=== PATIENT | male | born 1970 | race Caucasian/White ===

== ENCOUNTER → 2024-06-23 | Outpatient (CLI) | payer BC, SELFPAY ==
[2024-06-23 10:19] LABS: Absolute Neutrophil Count 4.1 X10^3/uL (2.0-7.7); Basophil# 0.08 X10^3/uL; Basophil% 1.1 % (0-1); Eosinophils% 1.4 % (0-5); Hematocrit 50.6 % (40-54); Hemoglobin 16.6 g/dL (13.0-16.5); Mean Corp Hgb Conc 32.8 g/dL (32-36); Mean Corpuscular Hgb 29.4 pg (27.0-32.0); Mean Corpuscular Volume 89.6 fL (80-94); Monocyte# 0.59 X10^3/uL; Monocyte% 8.3 % (0-10); NRBC Flagged by Analyzer 0 % (0-5); Neutrophil % 57.8 % (47-70); Platelet Count 249 K/mm3 (150-450); RBC Distribution Width CV 13.2 % (11.6-14.6); RBC Distribution Width SD 43.2 fl (35.1-43.9); Red Blood Count 5.65 M/mm3 (4.6-6.2); White Blood Count 7.1 K/mm3 (4.4-11.0)
[2024-06-23 10:41] LABS: Vitamin D,25 Hydroxy 26.4 ng/mL
[2024-06-23 11:10] LABS: ALB/GLOB Ratio 0.8 RATIO (0.9-2.4); AST(SGOT) 28 U/L (15-37); Alanine Aminotransfer ALT/SGPT 66 U/L (16-61); Albumin, Serum 3.6 g/dL (3.2-5.0); Alkaline Phosphatase 101 U/L (45-117); Anion Gap 6 (5-15); BUN 18 mg/dL (7-18); BUN/Creat Ratio 17.1 RATIO (10-20); Calcium,Total 9.4 mg/dL (8.5-10.1); Chloride 106 mmol/L (98-107); Cholesterol 188 mg/dL (200); Creatinine, Serum 1.05 mg/dL (0.70-1.30); EST Glomerular Filtration Rate 79 mL/min (>60); Est Glom Filt Rate - Afr Amer 95 mL/min (>60); Globulin 4.6 g/dL (2.2-4.2); Glucose 93 mg/dL (74-106); High Density Lipoprotein 38 mg/dL; PSA,Total- Diagnostic 1.03 ng/mL (0.0-4.0); Potassium 4.2 mmol/L (3.5-5.1); Protein, Total 8.2 g/dL (6.4-8.2); Sodium Level 136 mmol/L (136-145); Thyroid Stim Hormone (TSH) 1.83 uIU/mL (0.358-3.74); Triglycerides 219 mg/dL; Very Low Density Lipoprotein 44 mg/dL (5-40)
== END | disposition home or self-care (01) ==
PROVIDERS: PCP Family Medicine; Referring Provider Family Medicine; Visit Provider Family Medicine
DX: Z12.5 Encounter for screening for malignant neoplasm of prostate (principal); Z12.11 Encounter for screening for malignant neoplasm of colon; Z00.00 Encounter for general adult medical examination without abnormal findings; I10 Essential (primary) hypertension
CPT/HCPCS: 36415; 80053; 80061; 82306; 84153; 84443; 85025

== ENCOUNTER 2024-07-03 19:28 | Emergency (ER) | payer BC, SELFPAY ==
[2024-07-03] VITALS (10 sets, daily range): BP systolic 128–228; BP diastolic 95–135; PULSE 89–107; RESP 14–22; TEMP 35.6–37.2; O2SAT 96–98; BMI 37.5
[2024-07-03 20:00] LABS: Absolute Lymphocyte Count 4.19 X10^3/uL (0.83-4.51); Basophil# 0.09 X10^3/uL; Basophil% 0.8 % (0-1); Eosinophil# 0.18 X10^3/uL; Eosinophils% 1.7 % (0-5); Hematocrit 44.9 % (40-54); Hemoglobin 15.5 g/dL (13.0-16.5); Lymphocyte # 4.19 X10^3/ul (0.83-4.51); Lymphocyte % 39.2 % (19-41); Mean Corp Hgb Conc 34.5 g/dL (32-36); Mean Corpuscular Hgb 29.8 pg (27.0-32.0); Mean Corpuscular Volume 86.2 fL (80-94); Monocyte% 11.2 % (0-10); NRBC Flagged by Analyzer 0 % (0-5); Neutrophil % 46.7 % (47-70); Platelet Count 320 K/mm3 (150-450); RBC Distribution Width CV 13.1 % (11.6-14.6); RBC Distribution Width SD 40.5 fl (35.1-43.9); Red Blood Count 5.21 M/mm3 (4.6-6.2); White Blood Count 10.7 K/mm3 (4.4-11.0)
[2024-07-03 20:22] LABS: Anion Gap 8 (5-15); BUN 25 mg/dL (7-18); Calcium,Total 9.5 mg/dL (8.5-10.1); Chloride 107 mmol/L (98-107); Creatinine, Serum 1.25 mg/dL (0.70-1.30); EST Glomerular Filtration Rate 65 mL/min (>60); Est Glom Filt Rate - Afr Amer 78 mL/min (>60); Estimated Creatinine Clearance 79.66 ml/min; Glucose 115 mg/dL (74-106); Potassium 3.3 mmol/L (3.5-5.1); Sodium Level 140 mmol/L (136-145); Troponin-I HS 3 pg/mL (3.0-78.0)
--- NOTE | 2024-07-03 22:00 | EKG12_ITS ---
Test Reason : DYSRHYTHMIA Blood Pressure : / mmHG Vent. Rate : 101 BPM Atrial Rate : 101 BPM P-R Int : 176 ms QRS Dur : 072 ms QT Int : 332 ms P-R-T Axes : 067 053 020 degrees QTc Int : 430 ms Sinus tachycardia Nonspecific ST and T wave abnormality Abnormal ECG Confirmed by MARIA R DAY, ELIUD ([id number]), television news video editor YOU ROSE ([id number]) on 07/07/2024 8:46:35 AM Referred By: SAMAN Confirmed By:CHERIE HECK MD
[2024-07-03] MEDS: proCHLORPERazine 10 MG/2 ML Vial 5 MG IV (22:02)
[2024-07-03] MEDS: DiphenhydrAMINE 50 MG/ML Syringe 25 MG IV (22:02)
--- NOTE | 2024-07-03 22:09 | CT_ITS ---
INDICATION: headache EXAMINATION: CT BRAIN - CT Head or Brain W/O Contrast Injection TECHNIQUE: Serial CT axial images were obtained of the head without intravenous contrast. A radiation dose optimization technique was used for this scan. COMPARISON: None. Findings: Serial CT axial images of the head without contrast. BRAIN PARENCHYMA: Normal paul-white matter differentiation. No evidence of intraparenchymal hemorrhage or hyperattenuating extra-axial fluid collection. BONES: Bilateral maxillary sinus mucosal thickening. SCALP/REMAINING SOFT TISSUES: Unremarkable. ASPECTS Score for Acute Strokes, if applicable: 10 CT/Brain/Head without Contrast IMPRESSION: No acute intracranial hemorrhage in this noncontrast head CT. Electronically Signed: Yoshi Carrington MD at 22:52 EDT ,
--- NOTE | 2024-07-03 22:30 | RAD_ITS ---
INDICATION: sob EXAMINATION/TECHNIQUE: X-RAY - XR Chest 2 Views COMPARISON: None. Findings: Frontal and lateral views of the chest. LUNG PARENCHYMA: No acute focal airspace disease or mass lesion. PLEURA: No pleural effusion. No pneumothorax. HEART/GREAT VESSELS: Cardiomediastinal silhouette is unremarkable. BONES: Osseous structures are unremarkable for age. RAD/Chest PA and Lateral IMPRESSION: Chest with no acute disease. Electronically Signed: Yoshi Carrington MD at 22:59 EDT ,
[2024-07-03] MEDS: Ketorolac 15 MG/ML Vial IV (22:55)
[2024-07-03] MEDS: LORazepam 2 MG/ML Syringe 0.5 MG IV (22:55)
[2024-07-03] MEDS: Labetalol (Prefilled) 20 MG/4 ML 10 MG IV (23:43)
[2024-07-04] VITALS: BP 144/89; PULSE 85; RESP 18; O2SAT 94
--- NOTE | 2024-07-04 00:07 | EDS_ITS ---
HPI History of Present Illness Chief Complaint: Shortness of Breath Informant: patient Narrative Narrative: 53-year-old male with relatively new diagnosis of hypertension (started on Norvasc 5 mg daily) presenting with worsening headache. Patient having a worsening headache for the past week. Became significantly more severe tonight. Became so bad he started feel hot and short of breath. He notes his headache is still there but is improving. It is in the front of his head as well as the back of his head. Denies any vision changes. Denies associated numbness or tingling. No longer feels short of breath. Has been taking Tylenol with some relief of his symptoms and last had a dose at 1 PM. Denies any head injury. Describes the pain as throbbing in nature. No other complaints or concerns reported at this time [facility] Medical History HTN (hypertension) Home Medications ?Medication ?Instructions ?Recorded ?Last Taken ?Type amlodipine 5 mg tablet 5 mg PO DAILY 07/03/24 07/02/24 History cyclobenzaprine 10 mg tablet 10 mg PO TID PRN Muscle Spasm #20 07/04/24 Unknown Rx TABLETS Allergy/AdvReac Type Severity Reaction Status Date / Time No Known Allergies Allergy Verified 07/03/24 19:29 Social History Smoking Status: Never smoker Smokeless tobacco user: chewing tobacco alcohol intake: current alcohol intake frequency: holidays/special occasions only ROS ROS ED Constitutional Constitutional ED: Reports sweats; Denies chills or fever(s) Eyes Eyes: Denies blurry vision or change in vision ENT ENT ED: Reports sore throat and other Details: Recently treated for antibiotics for sore throat?improved Cardiovascular Cardiovascular: Denies chest pain Respiratory/Chest Respiratory/Chest: Reports dyspnea; Denies cough Gastrointestinal Gastrointestinal: Denies abdominal pain or vomiting Musculoskeletal Musculoskeletal: Denies arthralgias or myalgias Integumentary Denies rash Neurologic Neurologic: Reports headache(s); Denies paresthesias or weakness Psychiatric Psychiatric: Denies anxiety Hematologic/Lymphatic Hematologic/Lymphatic: Denies easy bleeding or easy bruising EXAM Physical Exam Const Vital Signs: 07/03/24 19:29 07/03/24 19:29 07/03/24 19:47 Temperature 96.1 F L Temperature Source Temporal Pulse Rate 97 Respiratory Rate 22 H Respiratory Effort Respiratory Depth Respiratory Pattern Blood Pressure 228/112 H 210/112 H Blood Pressure Mean 150 144 Pulse Ox 98 Oxygen Delivery Method Room Air Room Air 07/03/24 19:47 07/03/24 19:51 07/03/24 19:56 Temperature Temperature Source Pulse Rate 89 Respiratory Rate 16 14 Respiratory Effort Normal Respiratory Depth Normal Respiratory Pattern Normal Blood Pressure 204/107 H Blood Pressure Mean 139 Pulse Ox 96 97 Oxygen Delivery Method Room Air Room Air Room Air 07/03/24 21:20 07/03/24 21:42 07/03/24 22:04 Temperature 98.9 F Temperature Source Oral Pulse Rate 107 H 104 H 102 H Respiratory Rate 16 16 14 Respiratory Effort Respiratory Depth Respiratory Pattern Blood Pressure 189/95 H 189/95 H 213/128 H Blood Pressure Mean 126 126 156 Pulse Ox 98 98 96 Oxygen Delivery Method Room Air Room Air Room Air 07/03/24 22:40 07/03/24 23:03 07/03/24 23:51 Temperature 97.7 F L Temperature Source Pulse Rate 104 H 94 89 Respiratory Rate 22 H 16 Respiratory Effort Respiratory Depth Respiratory Pattern Blood Pressure 205/135 H 187/127 H 128/110 H Blood Pressure Mean 158 147 116 Pulse Ox 96 98 Oxygen Delivery Method Room Air 07/04/24 00:00 Temperature Temperature Source Pulse Rate 85 Respiratory Rate 18 Respiratory Effort Respiratory Depth Respiratory Pattern Blood Pressure 144/89 H Blood Pressure Mean 107 Pulse Ox 94 Oxygen Delivery Method Room Air Positive well nourished and well developed Constitutional Narrative: Uncomfortable appearing General Appearance ED: well developed HEENT Reports moist mucous membranes HEENT Narrative: Normal oropharynx. Negative for trauma or tenderness Eyes PERRL and EOMs intact bilaterally Neck supple and no JVD Neck Narrative: Normal range of motion of the neck. No nuchal rigidity. Chest Wall inspection of chest normal and palpation of chest normal Resp normal respiratory effort and clear to auscultation bilaterally Cardio regular rate, regular rhythm and no murmurs GI normal to inspection, nondistended, normoactive bowel sounds and non-tender Extremity normal to inspection Neuro oriented x3, CN's II-XII intact bilaterally and no sensory deficits noted Sensorium / Orientation: alert Motor Exam: strength 5/5 throughout; Negative for general weakness Psych mental status grossly normal Skin no rashes or lesions noted and no wounds MDM MDM MDM Narrative Medical decision making narrative: Patient is evaluated for headache as well as an episode of shortness of breath. The shortness of breath is since resolved. He has a normal neurologic exam. Due to the severity of his headache will obtain CT of the brain to rule out any large mass or bleed. This is negative for any acute process. Patient initially given Compazine and Benadryl in the ER for his headache. Given Toradol once the CT of the brain is negative. Continues to have pain but is slowly improving. I do question if this is more of a tension headache coming from his neck/upper back. Is been given a dose of lorazepam with further improvement of his heada jose c. On repeat evaluation patient is resting comfortably. Blood pressures improved but still elevated (around 180 systolic). Will give 1 dose of labetalol IV for further blood pressure control. He will continue with his Norvasc as he has only been on it for 2 weeks. Will follow-up outpatient with his primary care doctor. Patient agreeable this plan of care. Will also start patient on a muscle relaxer see if this helps further with his headaches. His Jodie precautions. Patient agreeable plan of care and discharged home in stable improved condition. As patient is not have any chest pain lower suspicion for an ACS type picture. Protocol orders did include a troponin which was normal. Lab Data Attestation: I reviewed the patient's lab results. Labs: Laboratory Results - last 24 hr 07/03/24 19:50 WBC 10.7 RBC 5.21 Hgb 15.5 Hct 44.9 MCV 86.2 MCH 29.8 MCHC 34.5 RDW Std Deviation 40.5 RDW Coeff of Elizabeth 13.1 Plt Count 320 MPV 10.0 Immature Gran % (Auto) 0.400 Neut % (Auto) 46.7 L Lymph % (Auto) 39.2 Nance % (Auto) 11.2 H Eos % (Auto) 1.7 Baso % (Auto) 0.8 Absolute Neuts (auto) 5.0 Absolute Lymphs (auto) 4.19 Nucleated RBC % 0 Sodium 140 Potassium 3.3 L Chloride 107 Carbon Dioxide 25.0 Anion Gap 8 BUN 25 H Creatinine 1.25 Estim Creat Clear Calc 79.66 Est GFR (MDRD) Af Amer 78 Est GFR (MDRD) Non-Af 65 BUN/Creatinine Ratio 20.0 Glucose 115 H Calcium 9.5 Troponin I High Sens 3 Radiography Chest X-Ray - ED: 2 View, Read by ED Physician, Read by Radiologist and No Acute Disease Diagnostic Testing: Clinical Impression(s) from Imaging Studies Brain CT 07/03/24 22:09 IMPRESSION: No acute intracranial hemorrhage in this noncontrast head CT. Electronically Signed: Yoshi Carrington MD at 22:52 EDT , Chest X-Ray 07/03/24 22:30 IMPRESSION: Chest with no acute disease. Electronically Signed: Yoshi Carrington MD at 22:59 EDT , Differential Diagnosis Chest pain/SOB: pneumothorax Reason(s) pneumothorax less likely: Positive for bilateral breath sounds and [employer] withhout PTX, pneumonia Reason(s) pneumonia less likely: Positive for no infiltrate on CXR, no elevation in WBC count and symptoms not consistent with acute infection and aortic dissection Reason(s) Aortic dissection less likely:: Positive for normal vascular exam, normal neurological exam, no widened mediastinum on CXR, pain not sudden onset, no ripping/tearing pain and no pain to back Discharge Plan Triage Chief Complaint: Shortness of Breath ED Provider: Tracy Head Dx/Rx/DC Orders Clinical Impression: Acute tension headache, Hypertension Instructions: ED Headache, Tension, ED Hypertension, Established Prescriptions: New cyclobenzaprine 10 mg tablet 10 mg PO TID PRN (Reason: Muscle Spasm) Qty: 20 0RF No Action amlodipine 5 mg tablet 5 mg PO DAILY Primary Care Provider: Lashonda Willard Referrals: Lashonda Willard MD [Primary Care Provider] - Activity Restrictions/Additional Instructions: Your lab work and the CT of your brain was normal. Your blood pressure did improve while in the emergency room. Please continue taking the Norvasc (amlodipine). I suspect her headache is from tight muscles in your neck called a tension headache. Alternate ibuprofen and Tylenol for this. Of also been prescribed a muscle relaxer to help with this. Please return to the ER if you have a progression or worsening of your symptoms. Please continue to follow-up outpatient with your primary care doctor. Print Language: Bulgarian Disposition Disposition: Home, Self Care
== END 2024-07-04 00:27 | disposition home or self-care (01) ==
PROVIDERS: Emergency Provider Emergency Medicine; PCP Family Medicine; Visit Provider Emergency Medicine
DX: G44.209 Tension-type headache, unspecified, not intractable (principal); I10 Essential (primary) hypertension; F17.220 Nicotine dependence, chewing tobacco, uncomplicated; Z79.899 Other long term (current) drug therapy
CPT/HCPCS: 70450; 71046; 80048; 84484; 85025; 93005; 94760; 96374; 96375; 99284; A4216

== ENCOUNTER → 2024-07-30 | Outpatient (CLI) | payer BC, SELFPAY ==
[2024-07-30 10:43] LABS: Potassium 4.3 mmol/L (3.5-5.1)
== END | disposition home or self-care (01) ==
LOC: MTLAB 07:08
PROVIDERS: PCP Family Medicine; Referring Provider Family Medicine; Visit Provider Family Medicine
DX: E87.6 Hypokalemia (principal)
CPT/HCPCS: 36415; 84132

== ENCOUNTER → 2025-01-22 | Outpatient (CLI) | payer BC, SELFPAY ==
[2025-01-22 14:10] LABS: Potassium 4.7 mmol/L (3.3-5.1); Vitamin D,25 Hydroxy 31.5 ng/mL (30-100)
== END | disposition home or self-care (01) ==
LOC: MFPLAB 08:43
PROVIDERS: PCP Family Medicine; Referring Provider Family Medicine; Visit Provider Family Medicine
DX: R23.2 Flushing (principal); R73.09 Other abnormal glucose
CPT/HCPCS: 36415; 82306; 83036; 84132

== ENCOUNTER → 2025-02-09 | Outpatient (CLI) | payer BC, SELFPAY | END | disposition home or self-care (01) | LOC: MTLAB 07:02 | PROVIDERS: PCP Family Medicine; Referring Provider Family Medicine; Visit Provider Family Medicine | DX: R23.2 Flushing (principal) | CPT/HCPCS: 36415; 84443 ==

== ENCOUNTER → 2025-07-20 | Outpatient (CLI) | payer SELFPAY ==
[2025-07-20 11:36] LABS: AST(SGOT) 21 U/L (<=37); Alanine Aminotransfer ALT/SGPT 41 U/L (<=46); Albumin, Serum 4.5 g/dL (3.5-5.0); Alkaline Phosphatase 72 U/L (40-129); Anion Gap 16 (5-15); BUN 22 mg/dL (4-19); BUN/Creat Ratio 20.1 RATIO (10-20); Calcium,Total 9.6 mg/dL (7.6-11.0); Carbon Dioxide 18.5 mmol/L (21.0-32.0); Chloride 100 mmol/L (98-108); Cholesterol 212 mg/dL (<=200); Globulin 3.3 g/dL (2.2-4.2); Glucose 123 mg/dL (70-99); Low Density Lipoprotein Calc. 143 mg/dL; PSA,Total - Annual Screen 1.26 ng/mL (0.02-4.00); Potassium 4.2 mmol/L (3.3-5.1); Triglycerides 127 mg/dL; Very Low Density Lipoprotein 25 mg/dL (5-40); cholesterol:hdl ratio screen 4.84
== END | disposition home or self-care (01) ==
PROVIDERS: PCP Family Medicine
DX: Z13.1 Encounter for screening for diabetes mellitus (principal); Z13.220 Encounter for screening for lipoid disorders; Z12.5 Encounter for screening for malignant neoplasm of prostate
CPT/HCPCS: 36415; 80053; 80061; 83036; 84153; G0103